=== PATIENT | male | born 1980 | race Two or more races ===

== ENCOUNTER 2016-05-21 03:06 | Emergency (ER) | payer BC ==
[2016-05-21] MEDS ORDERED: predniSONE 20 MG TAB PO STA (03:36)
[2016-05-21] MEDS ORDERED: IPRATROPIUM 0.5 MG/2.5 ML NEBU INHALATION STA (03:36)
[2016-05-21] MEDS ORDERED: TERBUTALINE 1 MG/ML VIAL SQ STA (03:36)
[2016-05-21] MEDS ORDERED: ALBUTEROL NEBULIZED 2.5 MG/3 ML INHALATION STA (03:36)
--- NOTE | 2016-05-21 03:37 | ED ---
General Adult HPI - General Chief complaint: Shortness of Breath Stated complaint: SOB/Hx Asthma Time Seen by Provider: 05/21/16 03:29 Source: patient, RN notes reviewed, old records reviewed Mode of arrival: ambulatory Limitations: no limitations - History of Present Illness Initial comments: This is a 35-year-old male here for evaluation of shortness of breath cough and congestion. Patient does have history of asthma, did see his family doctor 2 days ago was prescribed steroids and antibiotics and is getting progressively worse. He woke tonight with increasing shortness of breath. Denies any fevers no travel history no sick contacts pain no chest pain. No history of DVT. Patient has had asthma his whole life has not been admitted for asthma since he was younger. - Related Data Home Medications Medication Instructions Recorded Confirmed Azithromycin [Zithromax Z-pack] 0 mg PO DIRECTED 05/21/16 05/21/16 Fluticasone/Salmeterol [Advair 1 inhalation PO BID 05/21/16 05/21/16 100-50 Diskus] Lisinopril [Zestril] 5 mg PO DAILY 05/21/16 05/21/16 Allergies Allergy/AdvReac Type Severity Reaction Status Date / Time No Known Allergies Allergy Verified 05/21/16 03:20 Review of Systems ROS Statement: Those systems with pertinent positive or pertinent negative responses have been documented in the HPI. ROS Other: All systems not noted in ROS Statement are negative. Past Medical History Past Medical History: Asthma, Hypertension History of Any Multi-Drug Resistant Organisms: None Reported Past Surgical History: Appendectomy, Cholecystectomy Past Psychological History: No Psychological Hx Reported Smoking Status: Never smoker Past Alcohol Use History: Rare Past Drug Use History: None Reported General Exam Limitations: no limitations General appearance: alert, in no apparent distress Head exam: Present: atraumatic, normocephalic, normal inspection Eye exam: Present: normal appearance, PERRL, EOMI. Absent: scleral icterus, conjunctival injection, periorbital swelling ENT exam: Present: normal exam, mucous membranes moist Neck exam: Present: normal inspection. Absent: tenderness, meningismus, lymphadenopathy Respiratory exam: Present: normal lung sounds bilaterally, wheezes, decreased breath sounds. Absent: respiratory distress, rales, rhonchi, stridor Cardiovascular Exam: Present: regular rate, normal rhythm, normal heart sounds. Absent: systolic murmur, diastolic murmur, rubs, gallop, clicks GI/Abdominal exam: Present: soft, normal bowel sounds. Absent: distended, tenderness, guarding, rebound, rigid Extremities exam: Present: normal inspection, full ROM, normal capillary refill. Absent: tenderness, pedal edema, joint swelling, calf tenderness Back exam: Present: normal inspection Neurological exam: Present: alert, oriented X3, CN II-XII intact Psychiatric exam: Present: normal affect, normal mood Skin exam: Present: warm, dry, intact, normal color. Absent: rash Course Vital Signs 05/21/16 05/21/16 03:17 03:27 Temperature 97.5 F L Pulse Rate 75 Respiratory 18 18 Rate Blood Pressure 129/81 O2 Sat by Pulse 96 Oximetry - Reevaluation(s) Reevaluation #1: 05/21/16 04:50 Patient's patient is much improved after prolonged breathing treatment, Medical Decision Making - Medical Decision Making 35 noted here for evaluation of asthma exacerbation. Chest x-ray is negative for acute disease, patient is much improved after symptomatically therapy. Patient will increase steroid dose at home and can be discharged home to continue antibiotics as directed - Radiology Data Radiology results: report reviewed (Chest x-ray two-view is negative for acute disease), image reviewed Disposition Clinical Impression: Asthma with exacerbation Disposition: HOME SELF-CARE Condition: Good Instructions: Asthma (ED), Acute Bronchitis (ED) Referrals: Jeremias Hebert DO [Primary Care Provider] - 1-2 days
--- NOTE | 2016-05-21 04:33 | XR ---
EXAMINATION TYPE: XR chest 2V DATE OF EXAM: 05/21/2016 3:46 AM COMPARISON: NONE HISTORY: Short of breath TECHNIQUE: Frontal and lateral views of the chest are obtained. FINDINGS: Heart and mediastinum are normal. Lungs are clear. Diaphragm is normal. Bony thorax and so ft tissues appear normal. IMPRESSION: Normal chest
[2016-05-21 06:33] VITALS: BP 125/58; PULSE 100; RESP 16; TEMP 97
== END 2016-05-21 06:34 | disposition home or self-care (01) ==
LOC: EC 03:06
DX: J45.901 Unspecified asthma with (acute) exacerbation (principal); I10 Essential (primary) hypertension
CPT/HCPCS: 94644; 71020; 99285; 96372; J3105; J7512

== ENCOUNTER 2023-11-20 10:05 | Day surgery (SDC) | payer BC ==
[2023-11-20] MEDS ORDERED: LIDOCAINE HCL/PF 20 MG/ML 10 ML AMP ONE (12:49)
[2023-11-20] MEDS ORDERED: PROPOFOL 10 MG/ML 20 ML VIAL IV ONE (12:49)
--- NOTE | 2023-11-30 15:53 | OP ---
OPERATIVE REPORT DATE OF SERVICE : PREOPERATIVE DIAGNOSIS: Screening with family history of colon cancer and polyps. POSTOPERATIVE DIAGNOSIS: Normal exam. Slightly suboptimal prep. PROCEDURE PERFORMED: Colonoscopy. ANESTHESIA: Sedation. COMPLICATIONS: None. DESCRIPTION OF PROCEDURE: The patient was brought and placed on the OR table in the left decubitus position. The patient was sedated per Anesthesia at that time. The Olympus colonoscope was inserted into the anus and passed under direct visualization to the base of the cecum. From that point, we slowly withdrew the scope, inspected all organs carefully. There were no neoplastic, inflammatory, or polypoid lesions seen throughout the cecum, ascending, transverse, descending, sigmoid, or rectum. There was no visible diverticulosis. The patient's prep was slightly suboptimal with some retained liquid and solid stool seen throughout. Digital rectal exam was normal. PLAN: 1. Resume diet. 2. Followup colonoscopy in 5 years. MMODL / IJN: [id number] /
== END 2023-11-20 13:40 ==
LOC: ORWHC2ENDO 10:05
PROVIDERS: ATTEND Surgery
DX: Z12.11 Encounter for screening for malignant neoplasm of colon (principal); K57.30 Diverticulosis of large intestine without perforation or abscess without bleeding; I10 Essential (primary) hypertension; J45.909 Unspecified asthma, uncomplicated; F17.200 Nicotine dependence, unspecified, uncomplicated; Z80.0 Family history of malignant neoplasm of digestive organs; Z79.899 Other long term (current) drug therapy
CPT/HCPCS: 45378